=== PATIENT | female | born 1940 | race Caucasian/White ===

== ENCOUNTER 2017-01-05 14:01 | Emergency (ER) | payer OTHER, BC ==
[~2017-01-05] VITALS: Ht 165.1 cm; Wt 98.2 kg
[2017-01-05 14:10] VITALS: BP 182/71
== END 2017-01-05 17:02 | disposition home or self-care (01) ==
LOC: EME 14:01
PROC: 0HQFXZZ Repair Right Hand Skin, External Approach (ICD-10-PCS; principal; 2017-01-05)
DX: S61.216A Laceration without foreign body of right little finger without damage to nail, initial encounter (principal); W01.198A Fall on same level from slipping, tripping and stumbling with subsequent striking against other object, initial encounter; E11.9 Type 2 diabetes mellitus without complications; E78.5 Hyperlipidemia, unspecified; K21.9 Gastro-esophageal reflux disease without esophagitis; F32.9 Major depressive disorder, single episode, unspecified
CPT/HCPCS: 99281; 99284